=== PATIENT | female | born 1965 | race American Indian/Alaskan Native ===

== ENCOUNTER 2016-11-25 01:25 | Emergency (ER) | payer SELFPAY ==
[2016-11-25 03:34] LABS: Bacteria,Urine 1+ /HPF (Negative); Bilirubin,Urine NEG (Negative); Blood,Urine LG (Negative); Ketones,Urine NEG (Negative); Leukocyte Esterase,Urine NEG (Negative); Mucus,Urine 2+ /HPF; Nitrite,Urine NEG (Negative); Urobilinogen,Urine < 2.0 mg/dL (<2.0)
[2016-11-25 03:44] LABS: RBC,Urine > 182.0 /HPF (0.0-6.0)
--- NOTE | 2016-11-25 05:50 | Emergency Department Report ---
HPI - General Chief Complaint: Urogenital-Female Time Seen by Provider: 11/25/16 05:34 - HPI HPI: She is a 51-year-old female presents to the of urinary urgency for the past week. Patient states she started to take losm-xhj-garxgnp Azo O week ago started experiencing symptoms. Patient states symptoms are persistent and has no relief. She denies f/n/v She states she dysuria urgency but denies vaginal bleeding, vaginal discharge, dysuria or frequency ED Past Medical Hx - Past Medical History Hx Hypertension: Yes Additional medical history: Mobid Obesity - Surgical History Additional Surgical History: C-sections X 3 - Social History Smoking Status: Never Smoker Substance Use Type: None - Medications Home Medications: Home Medications Medication Instructions Recorded Confirmed Last Taken Type Clonidine 0.2 mg PO DAILY 11/25/16 11/25/16 Unknown History Lisinopril 20 mg PO DAILY 11/25/16 11/25/16 Unknown History Sulfamethoxazole/Trimethoprim 1 each PO BID #14 tablet 11/25/16 Unknown Rx [Bactrim DS TAB] metFORMIN 500 mg PO BID 11/25/16 11/25/16 Unknown History ED Review of Systems ROS: Stated complaint: UTI Other details as noted in HPI Constitutional: denies: chills, fever Eyes: denies: eye pain, eye discharge, vision change ENT: denies: ear pain, throat pain Respiratory: denies: cough, shortness of breath, wheezing Cardiovascular: denies: chest pain, palpitations Endocrine: no symptoms reported Gastrointestinal: denies: abdominal pain, nausea, diarrhea Genitourinary: denies: urgency, dysuria, discharge Musculoskeletal: denies: back pain, joint swelling, arthralgia Skin: denies: rash, lesions Neurological: denies: headache, weakness, paresthesias Psychiatric: denies: anxiety, depression Hematological/Lymphatic: denies: easy bleeding, easy bruising Physical Exam - Physical Exam Vital Signs: Vital Signs 11/25/16 02:18 Temperature 98.3 F Pulse Rate 87 Respiratory 16 Rate Blood Pressure 182/95 Blood Pressure 182/95 [Left] O2 Sat by Pulse 99 Oximetry Physical Exam: GENERAL: Alert and oriented x3, no apparent distress, Normal Gait, atraumatic. HEAD: Head is normocephalic and a-traumatic. EYES: Extra ocular muscles are intact. Pupils are equal, round, and reactive to light and accommodation. NECK: Supple. Non edematous, No carotid bruits. No lymphadenopathy or thyromegaly. No C-spine tenderness LUNGS: Symetrical with respiration, No wheezing, no rales or crackles, CTAB. HEART: S1, S2 present, regular rate and rhythm without murmur, no rubs, no gallops. Non tender to palpation ABDOMEN: No organomegaly was noted,Positive bowel sounds, soft, and non- distended. . Nontender to palpation on all Quadrants, NO CVA tenderness. BACK: Full range of motion, no spinal tenderness, nontender to palpation. SKIN: Warm and dry, No lesions, No ulceration or induration present. ED Course Vital Signs 11/25/16 02:18 Temperature 98.3 F Pulse Rate 87 Respiratory 16 Rate Blood Pressure 182/95 Blood Pressure 182/95 [Left] O2 Sat by Pulse 99 Oximetry ED Medical Decision Making - Medical Decision Making She is a 51-year-old female presents with urinary tract infection ED course: Urinalysis performed in ED, urinalysis positive for bacteria, positive for calc oxo First dose of antibiotics given in ED. Patient denies any pelvic or abdominal pain Discussed findings patient. Discussed patient to parts picker prescriptions take as prescribed. Vital signs are normal patient is in no acute distress Critical care attestation.: If time is entered above; I have spent that time in minutes in the direct care of this critically ill patient, excluding procedure time. ED Disposition Clinical Impression: UTI (urinary tract infection) Qualifiers: Urinary tract infection type: acute cystitis Hematuria presence: without hematuria Qualified Code(s): N30.00 - Acute cystitis without hematuria Disposition: TO HOME OR SELFCARE Is pt being admited?: No Does the pt Need Aspirin: No Condition: Stable Instructions: Urinary Tract Infection in Women (ED) Additional Instructions: Care medication as prescribed. Follow-up with primary care physician Prescriptions: Sulfamethoxazole/Trimethoprim [Bactrim DS TAB] 1 each PO BID #14 tablet Referrals: TIFFANIE MORLEY MD [Primary Care Provider] - 3-5 Days Forms: Accompanied Note, Work/School Release Form(ED) Time of Disposition: 05:47
[2016-11-25 05:51] VITALS: BP 166/93
[2016-11-25] MEDS ORDERED: BACTRIM DS PO ONE (05:51)
== END 2016-11-25 06:09 | disposition home or self-care (01) ==
LOC: ED 01:25
DX: N30.00 Acute cystitis without hematuria (principal); I10 Essential (primary) hypertension; E66.01 Morbid (severe) obesity due to excess calories
CPT/HCPCS: 81001

== ENCOUNTER 2018-10-03 04:29 | Emergency (ER) | payer SELFPAY ==
[2018-10-03 04:44] VITALS: BP 187/108
[2018-10-03 05:40] LABS: Bilirubin,Urine NEG (Negative); Blood,Urine LG (Negative); Color,Urine Colorless (Yellow); Protein,Urine <15 mg/dL mg/dL (Negative); Urobilinogen,Urine < 2.0 mg/dL (<2.0)
[2018-10-03 05:51] LABS: WBC,Urine < 1.0 /HPF (0.0-6.0)
--- NOTE | 2018-10-03 07:54 | Emergency Department Report ---
ED General Adult HPI - General Chief complaint: Back Pain/Injury Stated complaint: BACK PAIN/CONSTIPATION Time Seen by Provider: 10/03/18 07:46 Source: patient Mode of arrival: Ambulatory Limitations: No Limitations - History of Present Illness Initial comments: 53-year-old obese female comes in complaining of back pain and constipation. Patient put her last bowel movement was 12 noon yesterday. Patient also reports frequent urination and straining during a BM. Patient has no fever no chills no nausea no vomiting. Patient reports that her back pain has improved since being here. Patient reports she was able to evacuate a few balls of stool but not her normal evacuation. Patient admits that she drinks lots of copious coffee trying to lose weight. She reports that prior to coming in she drank plenty of water and now she is voiding plenty of urine. Onset/Timin -: hour(s) Location: back Radiation: non-radiation Severity scale (0 -10): 0 Quality: aching Consistency: intermittent - Related Data Home Medications Medication Instructions Recorded Confirmed Last Taken Clonidine 0.2 mg PO DAILY 11/25/16 11/25/16 Unknown Lisinopril 20 mg PO DAILY 11/25/16 11/25/16 Unknown metFORMIN 500 mg PO BID 11/25/16 11/25/16 Unknown Previous Rx's Medication Instructions Recorded Last Taken Type Sulfamethoxazole/Trimethoprim 1 each PO BID #14 tablet 11/25/16 Unknown Rx [Bactrim DS TAB] Docusate Sodium [Colace] 100 mg PO BID PRN #20 capsule 10/03/18 Unknown Rx Polyethylene Glycol 3350 [Miralax] 17 gm PO QDAY #238 powder 10/03/18 Unknown Rx Allergies Allergy/AdvReac Type Severity Reaction Status Date / Time No Known Allergies Allergy Unverified 06/07/14 09:22 ED Review of Systems ROS: Stated complaint: BACK PAIN/CONSTIPATION Other details as noted in HPI Comment: All other systems reviewed and negative Genitourinary: urgency Musculoskeletal: back pain ED Past Medical Hx - Past Medical History Previous Medical History?: Yes Hx Hypertension: Yes Additional medical history: Morbid Obesity - Surgical History Past Surgical History?: Yes Additional Surgical History: C-sections X 3 - Social History Smoking Status: Never Smoker Substance Use Type: None - Medications Home Medications: Home Medications Medication Instructions Recorded Confirmed Last Taken Type Clonidine 0.2 mg PO DAILY 11/25/16 11/25/16 Unknown History Lisinopril 20 mg PO DAILY 11/25/16 11/25/16 Unknown History Sulfamethoxazole/Trimethoprim 1 each PO BID #14 tablet 11/25/16 Unknown Rx [Bactrim DS TAB] metFORMIN 500 mg PO BID 11/25/16 11/25/16 Unknown History Docusate Sodium [Colace] 100 mg PO BID PRN #20 capsule 10/03/18 Unknown Rx Polyethylene Glycol 3350 [Miralax] 17 gm PO QDAY #238 powder 10/03/18 Unknown Rx ED Physical Exam - General Limitations: No Limitations General appearance: alert, in no apparent distress - Head Head exam: Present: atraumatic, normocephalic - Eye Eye exam: Present: normal appearance - ENT ENT exam: Present: mucous membranes moist - Neck Neck exam: Present: normal inspection - Respiratory Respiratory exam: Present: normal lung sounds bilaterally. Absent: respiratory distress - Cardiovascular Cardiovascular Exam: Present: regular rate, normal rhythm. Absent: systolic murmur, diastolic murmur, rubs, gallop - GI/Abdominal GI/Abdominal exam: Present: soft, normal bowel sounds - Extremities Exam Extremities exam: Present: normal inspection - Back Exam Back exam: Present: normal inspection - Neurological Exam Neurological exam: Present: alert, oriented X3 - Psychiatric Psychiatric exam: Present: normal affect, normal mood - Skin Skin exam: Present: warm, dry, intact, normal color. Absent: rash ED Course Vital Signs 10/03/18 04:42 Temperature 98.4 F Pulse Rate 90 Respiratory 18 Rate Blood Pressure 187/108 O2 Sat by Pulse 98 Oximetry ED Medical Decision Making - Medical Decision Making Patient has been evaluated by this provider at [facility]. She is a 53-year-old female that comes in for concerns of constipation back pain and urinary urgency. I discussed the patient that her urine looked fine she does have some Bear hematuria. Other than that patient has no white count nitrates protein RBCs or WBCs. Discussed the patient that she can try MiraLAX and Colace to help void. Discussed the patient is very important for her to follow back up with her primary care provider to have her microhematuria evaluated. Patient verbalized understanding. Critical care attestation.: If time is entered above; I have spent that time in minutes in the direct care of this critically ill patient, excluding procedure time. ED Disposition Clinical Impression: Constipation, Urinary urgency, Microhematuria Disposition: DC-01 TO HOME OR SELFCARE Is pt being admited?: No Does the pt Need Aspirin: No Condition: Stable Instructions: Constipation (ED), High Fiber Diet (ED), Acute Hematuria (ED) Additional Instructions: Take medications as prescribed. Follow-up to primary care provider if her symptoms persist or gets worse. I feel that she needs to follow up to primary care provider in regards to micro-hematuria/blood in urine. You may need further testing. Prescriptions: Docusate Sodium [Colace] 100 mg PO BID PRN #20 capsule PRN Reason: Constipation Polyethylene Glycol 3350 [Miralax] 17 gm PO QDAY #238 powder Referrals: [facility] SAUL SON MD [Primary Care Provider] - 3-5 Days
== END 2018-10-03 07:56 | disposition home or self-care (01) ==
LOC: ED 04:29
DX: K59.00 Constipation, unspecified (principal); R39.15 Urgency of urination; R31.29 Other microscopic hematuria; I10 Essential (primary) hypertension
CPT/HCPCS: 81001; 87086

== ENCOUNTER 2020-02-05 21:56 | Inpatient (IN) | payer OTHER ==
[2020-02-06] MEDS ORDERED: predniSONE 20 MG TAB PO ONE (00:39)
[2020-02-06] MEDS ORDERED: BENZONATATE 100 MG CAP PO ONE (00:39)
--- NOTE | 2020-02-06 00:48 | Emergency Department Report ---
- General Chief Complaint: Upper Respiratory Infection Stated Complaint: COUGH/BODY ACHES Source: patient Mode of arrival: Ambulatory Limitations: No Limitations - History of Present Illness Initial Comments: Patient is a 54-year-old -Vincent[place] female with a history of morbid obesity and zcv-ssulqwp-rsbquiizw diabetes who presents to the ED with complaint of acute onset persistent nasal and sinus congestion, frontal sinus pressure and headache, persistent dry cough for the last 1 week, worse in the last 2 days. Patient states that the cough is worse at night or when she lays down. Patient states that she has been taking ttxh-fmm-cknefgx decongestants and cough medications with no relief. Patient denies fever, chills, sore throat, chest pain, dizziness, shortness of breath, change in vision, syncope, palpitations, abdominal pain, wheezing or nausea, vomiting and diarrhea. MD Complaint: cough, rhinorrhea, nasal congestion, sinus pain -: Sudden, week(s) (1) Severity: severe Severity scale (0 -10): 7 Quality: dull Consistency: constant Improves With: nothing Worsens With: nothing Associated Symptoms: denies other symptoms, rhinorrhea, nasal congestion, cough. denies: fever, chills, myalgias, diaphoresis, headache, sore throat, stiff neck, chest pain, shortness of breath, abdominal pain, nausea, vomiting, diarrhea, dysuria, rash, confusion, right sweats, weight loss - Related Data Home Medications Medication Instructions Recorded Confirmed Last Taken Clonidine 0.2 mg PO DAILY 11/25/16 11/25/16 Unknown Lisinopril 20 mg PO DAILY 11/25/16 11/25/16 Unknown metFORMIN 500 mg PO BID 11/25/16 11/25/16 Unknown Previous Rx's Medication Instructions Recorded Last Taken Type Sulfamethoxazole/Trimethoprim 1 each PO BID #14 tablet 11/25/16 Unknown Rx [Bactrim DS TAB] Docusate Sodium [Colace] 100 mg PO BID PRN #20 capsule 10/03/18 Unknown Rx Polyethylene Glycol 3350 [Miralax] 17 gm PO QDAY #238 powder 10/03/18 Unknown Rx Allergies Allergy/AdvReac Type Severity Reaction Status Date / Time No Known Allergies Allergy Unverified 06/07/14 09:22 ED Review of Systems ROS: Stated complaint: COUGH/BODY ACHES Other details as noted in HPI Constitutional: denies: chills, fever Eyes: denies: eye pain, eye discharge, vision change ENT: congestion. denies: ear pain, throat pain Respiratory: cough. denies: shortness of breath, wheezing Cardiovascular: denies: chest pain, palpitations Endocrine: no symptoms reported Gastrointestinal: denies: abdominal pain, nausea, vomiting, diarrhea Genitourinary: denies: urgency, dysuria, discharge Musculoskeletal: denies: back pain, joint swelling, arthralgia Skin: denies: rash, lesions Neurological: headache. denies: weakness, paresthesias Psychiatric: denies: anxiety, depression Hematological/Lymphatic: denies: easy bleeding, easy bruising ED Past Medical Hx - Past Medical History Previous Medical History?: Yes Hx Hypertension: Yes Additional medical history: Morbid Obesity - Surgical History Past Surgical History?: Yes Additional Surgical History: C-sections X 3 - Social History Smoking Status: Never Smoker Substance Use Type: None - Medications Home Medications: Home Medications Medication Instructions Recorded Confirmed Last Taken Type Clonidine 0.2 mg PO DAILY 11/25/16 11/25/16 Unknown History Lisinopril 20 mg PO DAILY 11/25/16 11/25/16 Unknown History Sulfamethoxazole/Trimethoprim 1 each PO BID #14 tablet 11/25/16 Unknown Rx [Bactrim DS TAB] metFORMIN 500 mg PO BID 11/25/16 11/25/16 Unknown History Docusate Sodium [Colace] 100 mg PO BID PRN #20 capsule 10/03/18 Unknown Rx Polyethylene Glycol 3350 [Miralax] 17 gm PO QDAY #238 powder 10/03/18 Unknown Rx ED Physical Exam - General Limitations: No Limitations General appearance: alert, in no apparent distress, obese - Head Head exam: Present: atraumatic, normocephalic, normal inspection - Eye Eye exam: Present: normal appearance, PERRL, EOMI Pupils: Present: normal accommodation - ENT ENT exam: Present: normal orophraynx, mucous membranes moist, TM's normal bilaterally, normal external ear exam, other (Grossly congested nasal passages; palpable frontal and maxillary sinus tenderness) - Neck Neck exam: Present: normal inspection, full ROM - Respiratory Respiratory exam: Present: normal lung sounds bilaterally. Absent: respiratory distress, wheezes, rales, rhonchi, chest wall tenderness, accessory muscle use, decreased breath sounds, prolonged expiratory - Cardiovascular Cardiovascular Exam: Present: regular rate, normal rhythm, normal heart sounds. Absent: systolic murmur, diastolic murmur, rubs, gallop - GI/Abdominal GI/Abdominal exam: Present: soft, normal bowel sounds. Absent: tenderness, guarding, rebound, hyperactive bowel sounds, hypoactive bowel sounds, organomegaly - Extremities Exam Extremities exam: Present: normal inspection, full ROM, normal capillary refill - Back Exam Back exam: Present: normal inspection, full ROM. Absent: CVA tenderness (L), muscle spasm, paraspinal tenderness, vertebral tenderness - Neurological Exam Neurological exam: Present: alert, oriented X3, CN II-XII intact, normal gait, reflexes normal - Psychiatric Psychiatric exam: Present: normal affect, normal mood - Skin Skin exam: Present: warm, dry, intact, normal color. Absent: rash ED Course Vital Signs 02/06/20 00:17 Temperature 98.7 F Pulse Rate 96 H Respiratory 18 Rate Blood Pressure 180/78 O2 Sat by Pulse 100 Oximetry ED Medical Decision Making - Radiology Data Radiology results: report reviewed, image reviewed Findings [address] [address] XRay Report Signed Patient: NAYAN BARRON MR#: [id number] : 1965 Acct:[id number] Age/Sex: 54 / F ADM Date: 02/05/20 Loc: ED Attending Dr: Ordering Physician: ROGERS IZAGUIRRE MD Date of Service: 02/06/20 Procedure(s): XR chest routine 2V Accession Number(s): [id number] cc: ROGERS IZAGUIRRE MD Fluoro Time In Minutes: CHEST 2 VIEWS INDICATION / CLINICAL INFORMATION: cough. COMPARISON: None available. FINDINGS: SUPPORT DEVICES: None. HEART / MEDIASTINUM: No significant abnormality. LUNGS / PLEURA: There are patchy bilateral peripheral opacities. No pneumothorax. ADDITIONAL FINDINGS: No significant additional findings. IMPRESSION: 1. Patchy bilateral peripheral pulmonary opacities that may reflect developing infectious process. Viral pneumonia would be a possibility. Signer Name: Dontae Rodriguez MD Signed: 02/06/2020 12:51 AM Workstation Name: [id number] Transcribed By: VIRGEN Dictated By: Dontae Rodriguez MD Electronically Authenticated By: Dontae Rodriguez MD Signed Date/Time: 02/06/2050 DD/ TD/TT: - Medical Decision Making This is a 54-year-old -Vincentian female with a history of morbid obesity and ztw-xaepsyu-fnlgyxjre diabetes who presents to the ED with complaint of acute onset persistent nasal and sinus congestion, frontal sinus pressure and headache, persistent dry cough for the last 1 week, worse in the last 2 days. Patient states that the cough is worse at night or when she lays down. Patient states that she has been taking hxie-nex-jwbropz decongestants and cough medications with no relief. In the ED, patient is alert and oriented x3 and is not in distress with normal vital signs. Patient was treated with steroids and Duoneb in the ED and chest x-ray patchy bilateral peripheral pulmonary opacities that may reflect developing infectious process. Viral pneumonia would be a possibility. The initial vital signs on arrival in the ED during triage showed oxygen saturation of 100% in room air. However when patient was walked around the ED the oxygen saturation dropped to 89% and stayed in the range of 89% to 91% with exertion. More lab tests were ordered and the patient case was discussed with the ED attending physician Dr. Rogers Izaguirre who advised the patient be admitted to the hospital for hypoxia and suspected Covid 19 viral infection and community-acquired pneumonia. Patient was therefore started on azithromycin 500 mg IV x1, also Rocephin 1 g IV x1 and patient was placed on nasal cannula oxygen at 2 L/min, and COVID-19 order set was initiated. The patient case was also discussed with the hospitalist physician on-call Dr. Teran who admitted the patient to the hospital for further evaluation. - Differential Diagnosis Pneumonia; Covid-19; Sinusitis; URI; Bronchitis Critical care attestation.: If time is entered above; I have spent that time in minutes in the direct care of this critically ill patient, excluding procedure time. ED Disposition Clinical Impression: Acute upper respiratory infection, Suspected COVID-19 virus infection, Hypoxia Acute bronchitis Qualifiers: Bronchitis organism: other organism Qualified Code(s): J20.8 - Acute bronchitis due to other specified organisms Community acquired pneumonia Qualifiers: Laterality: unspecified laterality Qualified Code(s): J18.9 - Pneumonia, unspecified organism Disposition: OP ADMIT IP TO THIS HOSP Is pt being admited?: Yes Does the pt Need Aspirin: Yes Condition: Stable Instructions: Acute Bronchitis, Adult, Rpvt-ae-Furk, Upper Respiratory Infection, Adult, [id number], Acute Bronchitis (ED), Bacterial Pneumonia (ED) Referrals: [facility] [Provider Group] - 7-10 days Time of Disposition: 00:49 Print Language: YAKUT
--- NOTE | 2020-02-06 00:56 | XRay Report ---
CHEST 2 VIEWS INDICATION / CLINICAL INFORMATION: cough. COMPARISON: None available. FINDINGS: SUPPORT DEVICES: None. HEART / MEDIASTINUM: No significant abnormality. LUNGS / PLEURA: There are patchy bilateral peripheral opacities. No pneumothorax. ADDITIONAL FINDINGS: No significant additional findings. IMPRESSION: 1. Patchy bilateral peripheral pulmonary opacities that may reflect developing infectious process. Vi ral pneumonia would be a possibility. Signer Name: Dontae Rodriguez MD Signed: 02/06/2020 12:51 AM Workstation Name: [id number]
[2020-02-06] MEDS ORDERED: IPRATROPIUM/ALBUTEROL SULFATE 3 ML AMPUL.NEB IH ONE (01:18)
[2020-02-06] MEDS ORDERED: dexAMETHasone 20 MG/5 ML VIAL IV ONE (01:25)
[2020-02-06] MEDS ORDERED: cefTRIAXone/NS 1 GM/50 ML 1 GM/50 ML BAG IV ONE (01:26)
[2020-02-06] MEDS ORDERED: ASPIRIN 81 MG TAB CHEW PO ONE (01:36)
[2020-02-06] MEDS ORDERED: AZITHROMYCIN 500 MG in SODIUM CHLORIDE 0.9% 250ML 250 ML IV ONE (01:46)
[2020-02-06 01:59] LABS: Basophils % (Auto) 0.3 % (0.0-1.8); Eosinophils % (Auto) 0.1 % (0.0-4.3); Hematocrit 40.4 % (30.3-42.9); Hemoglobin 13.5 gm/dl (10.1-14.3); Lymphocytes # (Auto) 1.7 K/mm3 (1.2-5.4); Lymphocytes % (Auto) 28.4 % (13.4-35.0); Mean Corpuscular HGB Conc 33 % (30-34); Mean Corpuscular Volume 80 fl (79-97); Monocytes # (Auto) 0.6 K/mm3 (0.0-0.8); Monocytes % (Auto) 9.4 % (0.0-7.3); Platelet Count 239 K/mm3 (140-440); Red Blood Count 5.07 M/mm3 (3.65-5.03); Red Cell Distribution Width 13.9 % (13.2-15.2)
[2020-02-06 02:15] LABS: Alanine Aminotransferase 90 units/L (7-56); Albumin 3.9 g/dL (3.9-5); BUN/Creatinine Ratio 13; Blood Urea Nitrogen 12 mg/dL (7-17); Hemolysis Index 3
[2020-02-06] MEDS ORDERED: ONDANSETRON 4 MG/2 ML INJ IV PRN ×2 (02:17→02:19)
[2020-02-06] MEDS ORDERED: ACETAMINOPHEN 325 MG TAB PO PRN (02:17)
[2020-02-06] MEDS ORDERED: MORPHINE 2 MG/1 ML INJ IV PRN (02:19)
[2020-02-06] MEDS ORDERED: MAGNESIUM HYDROXIDE (MOM) ORAL LIQD UDC PO PRN (02:19)
[2020-02-06] MEDS ORDERED: DEXTROSE 50% IN WATER (25GM) 50 ML SYRINGE IV PRN (02:25)
[2020-02-06] MEDS ORDERED: SODIUM CHLORIDE 0.9% 1000 ML 1,000 ML IV SCH (02:30)
--- NOTE | 2020-02-06 02:34 | History and Physical Report ---
History of Present Illness Date of examination: 02/06/20 Date of admission: 02/06/2020 Chief complaint: Nasal Congestion History of present illness: 54-year-old -[place] female with known history of morbid obesity and diabetes mellitus presenting to the emergency room today complaining of new onset nasal and sinus congestion, cough and some headache over the past 1 week. Symptoms are said to have gotten worse over the past 2 days. Cough has been nonproductive or gets worse when she lies down. Patient denies any chest pain, no fever or chills, no sore throat, no nausea or vomiting and no diarrhea. Patient denies any recent travel no sick contacts. She also denies contact with anyone with COVID-19. Upon arrival in the emergency room patient was mildly hypoxic on minimal exertion. Work-up in the emergency room today reveals bilateral pneumonia. She has been started on empiric IV antibiotics for pneumonia and she will also be ruled out for COVID-19. Past History Past Medical History: diabetes, hypertension, other (Morbid obesity) Past Surgical History: Social history: no significant social history Family history: no significant family history Medications and Allergies Allergies Allergy/AdvReac Type Severity Reaction Status Date / Time No Known Allergies Allergy Unverified 06/07/14 09:22 Home Medications Medication Instructions Recorded Confirmed Last Taken Type Lisinopril 20 mg PO DAILY 11/25/16 02/06/20 Unknown History metFORMIN 500 mg PO BID 11/25/16 02/06/20 Unknown History Active Meds: Active Medications Acetaminophen (Tylenol) 650 mg PO Q4H PRN PRN Reason: Pain MILD(1-3)/Fever >100.5/GR Dexamethasone (Decadron) 6 mg IV Q24HR NELLIE Dextrose (D50w (25gm) Syringe) 50 ml IV Q30MIN PRN; Protocol PRN Reason: Hypoglycemia Enoxaparin Sodium (Enoxaparin) 40 mg SUB-Q QDAY@2200 NELLIE; Protocol Azithromycin 500 mg/ Sodium (Chloride) 250 mls @ 250 mls/hr IV ONCE ONE; Protocol Stop: 02/06/20 02:45 Ceftriaxone Sodium (Rocephin/Ns 2 Gm/100 Ml) 2 gm in 100 mls @ 200 mls/hr IV Q24HR NELLIE; Protocol Azithromycin 500 mg/ Sodium (Chloride) 250 mls @ 250 mls/hr IV Q24HR NELLIE; Protocol Sodium Chloride (Nacl 0.9% 1000 Ml) 1,000 mls @ 75 mls/hr IV DIRECT NELLIE Insulin Human Lispro (Humalog) 0 unit SUB-Q ACHS NELLIE; Protocol Magnesium Hydroxide (Milk Of Magnesia) 30 ml PO Q4H PRN PRN Reason: Constipation Morphine Sulfate (Morphine) 2 mg IV Q4H PRN PRN Reason: Pain, Moderate (4-6) Ondansetron HCl (Zofran) 4 mg IV Q8H PRN PRN Reason: Nausea And Vomiting Sodium Chloride (Sodium Chloride Flush Syringe 10 Ml) 10 ml IV BID NELLIE Sodium Chloride (Sodium Chloride Flush Syringe 10 Ml) 10 ml IV PRN PRN PRN Reason: LINE FLUSH Review of Systems Constitutional: no fever, no chills Ears, nose, mouth and throat: nasal congestion, no sore throat Cardiovascular: no chest pain, no palpitations Respiratory: cough, no shortness of breath Gastrointestinal: no abdominal pain, no nausea, no vomiting, no diarrhea Genitourinary Female: no flank pain, no dysuria, no hematuria Musculoskeletal: no neck pain, no low back pain Integumentary: no rash, no pruritis Neurological: no headaches, no confusion Psychiatric: no anxiety, no depression Exam - Constitutional Vitals: Temp Pulse Resp BP Pulse Ox 98.7 F 98 H 18 180/78 100 02/06/20 00:17 02/06/20 01:57 02/06/20 01:57 02/06/20 00:17 02/06/20 00:17 General appearance: Present: no acute distress, well-nourished - EENT Eyes: Present: PERRL, EOM intact. Absent: scleral icterus ENT: hearing intact, clear oral mucosa, dentition normal - Neck Neck: Present: supple, normal ROM - Respiratory Respiratory effort: normal Respiratory: bilateral: diminished - Cardiovascular Rhythm: regular Heart Sounds: Present: S1 & S2. Absent: gallop, systolic murmur, diastolic murmur, rub - Extremities Extremities: no ischemia, pulses intact, pulses symmetrical, No edema, Full ROM Peripheral Pulses: within normal limits - Abdominal General gastrointestinal: Present: soft, non-tender, non-distended, normal bowel sounds. Absent: mass - Integumentary Integumentary: Present: clear, warm, dry - Musculoskeletal Musculoskeletal: strength equal bilaterally - Psychiatric Psychiatric: appropriate mood/affect, intact judgment & insight, memory intact, cooperative - Neurologic Neurologic: CNII-XII intact, no focal deficits, moves all extremities Results - Labs CBC & Chem 7: 02/06/20 01:34 02/06/20 01:34 Labs: Abnormal lab results 02/06/20 02/06/20 02/06/20 Range/Units 01:34 01:34 01:34 RBC 5.07 H (3.65-5.03) M/mm3 MCH 27 L (28-32) pg [place] % (Auto) 9.4 H (0.0-7.3) % D-Dimer 537.10 H (0-234) ng/mlDDU Potassium 2.9 L* (3.6-5.0) mmol/L Chloride 97.2 L (98-107) mmol/L Glucose 135 H (65-100) mg/dL AST 67 H (5-40) units/L ALT 90 H (7-56) units/L 02/06/20 Range/Units 01:34 RBC (3.65-5.03) M/mm3 MCH (28-32) pg [place] % (Auto) (0.0-7.3) % D-Dimer (0-234) ng/mlDDU Potassium (3.6-5.0) mmol/L Chloride (98-107) mmol/L Glucose 134 H (65-100) mg/dL AST (5-40) units/L ALT (7-56) units/L Assessment and Plan - Patient Problems (1) Community acquired pneumonia Current Visit: Yes Status: Acute Qualifiers: Laterality: unspecified laterality Qualified Code(s): J18.9 - Pneumonia, unspecified organism Plan to address problem: Patient started on empiric IV antibiotics. We await blood culture results. (2) Suspected COVID-19 virus infection Current Visit: Yes Status: Acute Plan to address problem: Patient placed on isolation precautions. We await COVID-19 testing We will also await evaluation by infectious disease. Meanwhile patient placed on IV steroid (3) Hypoxia Current Visit: Yes Status: Acute Plan to address problem: Possibly secondary to the Covid pneumonia. Patient placed on oxygen and will keep O2 saturation greater or equal to 94%. (4) DVT prophylaxis Current Visit: Yes Status: Acute Plan to address problem: Patient placed on subcutaneous Lovenox. (5) Full code status Current Visit: Yes Status: Acute
[2020-02-06 03:07] LABS: C-Reactive Protein 3.2 mg/dL (0.00-1.30)
[2020-02-06] MEDS: INSULIN LISPRO 100 UNIT/ML VIAL 3 mL SUB-Q SCH ×4 (08:08→22:47)
[2020-02-06] MEDS ORDERED: POTASSIUM CHLORIDE ER 20 MEQ TAB PO NR (09:08)
[2020-02-06] MEDS ORDERED: AZITHROMYCIN 500 MG in SODIUM CHLORIDE 0.9% 250ML 250 ML IV SCH (10:00)
[2020-02-06] MEDS ORDERED: dexAMETHasone 4 MG/ML VIAL IV SCH (10:00)
[2020-02-06] MEDS ORDERED: cefTRIAXone/NS 2 GM/100 ML 2 GM/100 ML BAG IV SCH (10:00)
[2020-02-06] MEDS: LISINOPRIL 20 MG TAB PO SCH (10:15)
[2020-02-06] MEDS ORDERED: hydrALAZINE 20 MG/1 ML INJ IV PRN (13:37)
--- NOTE | 2020-02-06 13:39 | Event Note ---
Date: 02/06/20 patient seen and examined follow COVID test magnusy, adjust BP meds replete K, follow BMP
[2020-02-06] MEDS: carvediloL 6.25 MG TAB PO SCH ×2 (14:20→22:46)
[2020-02-06] MEDS: amLODIPine 10 MG TAB PO SCH (14:20)
[2020-02-06] MEDS: POTASSIUM CHLORIDE 10 MEQ 10 MEQ/100 ML BAG IV SCH ×4 (14:21→22:46)
[2020-02-06] MEDS: IPRATROPIUM/ALBUTEROL SULFATE 3 ML AMPUL.NEB IH SCH ×2 (14:31→21:25)
--- NOTE | 2020-02-06 14:36 | Consultation ---
History of Present Illness - Reason for Consult Consult date: 02/06/20 Rule out Covid Requesting physician: ANDRAE HESTER - History of Present Illness 54 years old female with history of morbid obesity, diabetes mellitus, admitted on 02/06/2020 due to a week history of nasal congestion, sinus congestion, cough, headaches. Cough is dry. Patient denies any fever, chills, nausea, vomiting or diarrhea. On arrival, temperature 98.7, HR 96, O2 sat 98%, RR 18, BP 180/78. During ambulation O2 sat dropped to 89%. Initial WBC 5.8. CRP 0.9. AST 67. ALT 90. Ferritin 674. Procalcitonin negative. D-dimer 537. Chest x-ray shows bilateral interstitial infiltrates. Review of Systems: reviewed ED and H&P notes. Limited due to PPE conservation st rategy Past History Past Medical History: diabetes, hypertension, other (Morbid obesity) Past Surgical History: Social history: no significant social history Family history: no significant family history Medications and Allergies Allergies Allergy/AdvReac Type Severity Reaction Status Date / Time No Known Allergies Allergy Unverified 06/07/14 09:22 Home Medications Medication Instructions Recorded Confirmed Last Taken Type Lisinopril 20 mg PO DAILY 11/25/16 02/06/20 Unknown History metFORMIN 500 mg PO BID 11/25/16 02/06/20 Unknown History Lisinopril/Hydrochlorothiazide 1 each PO DAILY 02/06/20 02/06/20 Unknown History [Zestoretic 10-12.5 mg Tablet] amLODIPine 5 mg PO DAILY 02/06/20 02/06/20 Unknown History cloNIDine [Catapres] 0.2 mg PO BID 02/06/20 02/06/20 Unknown History Active Meds: Active Medications Acetaminophen (Tylenol) 650 mg PO Q4H PRN PRN Reason: Pain MILD(1-3)/Fever >100.5/GR Albuterol/Ipratropium (Duoneb *Not For Prn Use*) 1 ampul IH Q6HRT [facility] Last Admin: 02/06/20 14:31 Dose: 1 ampul Documented by: Amlodipine Besylate (Amlodipine) 10 mg PO QDAY [facility] Last Admin: 02/06/20 14:20 Dose: 10 mg Documented by: Carvedilol (Coreg) 6.25 mg PO BID [facility] Last Admin: 02/06/20 14:20 Dose: 6.25 mg Documented by: Dexamethasone (Decadron) 6 mg PO Q24HR NELLIE Dextrose (D50w (25gm) Syringe) 0 ml IV Q30MIN PRN; Protocol PRN Reason: Hypoglycemia Enoxaparin Sodium (Enoxaparin) 40 mg SUB-Q QDAY@2200 NELLIE; Protocol Hydralazine HCl (Apresoline) 10 mg IV Q30MIN PRN PRN Reason: Hypertension Ceftriaxone Sodium (Rocephin/Ns 2 Gm/100 Ml) 2 gm in 100 mls @ 200 mls/hr IV Q24HR NELLIE; Protocol Last Admin: 02/06/20 10:10 Dose: 200 mls/hr Documented by: Azithromycin 500 mg/ Sodium (Chloride) 250 mls @ 250 mls/hr IV Q24HR NELLIE; Protocol Last Admin: 02/06/20 11:39 Dose: 250 mls/hr Documented by: Sodium Chloride (Nacl 0.9% 1000 Ml) 1,000 mls @ 75 mls/hr IV DIRECT NELLIE Last Admin: 02/06/20 06:19 Dose: 75 mls/hr Documented by: Potassium Chloride (Kcl 10meq/100ml) 10 meq in 100 mls @ 100 mls/hr IV Q1H NELLIE Stop: 02/06/20 17:59 Last Admin: 02/06/20 14:21 Dose: 100 mls/hr Documented by: Insulin Human Lispro (Humalog) 0 unit SUB-Q ACHS NELLIE; Protocol Last Admin: 02/06/20 11:40 Dose: 3 unit Documented by: Lisinopril (Zestril) 20 mg PO DAILY [facility] Last Admin: 02/06/20 10:15 Dose: 20 mg Documented by: Magnesium Hydroxide (Milk Of Magnesia) 30 ml PO Q4H PRN PRN Reason: Constipation Morphine Sulfate (Morphine) 2 mg IV Q4H PRN PRN Reason: Pain, Moderate (4-6) Ondansetron HCl (Zofran) 4 mg IV Q8H PRN PRN Reason: Nausea And Vomiting Potassium Chloride (K-Dur) 40 meq PO ONCE ONE Stop: 02/06/20 15:01 Last Admin: 02/06/20 14:19 Dose: 40 meq Documented by: Sodium Chloride (Sodium Chloride Flush Syringe 10 Ml) 10 ml IV BID NELLIE Last Admin: 02/06/20 10:10 Dose: 10 ml Documented by: Sodium Chloride (Sodium Chloride Flush Syringe 10 Ml) 10 ml IV PRN PRN PRN Reason: LINE FLUSH Physical Examination - Physical Exam Narrative exam: Physical Exam: reviewed ED and hospitalist notes, limited due to conservation of PPE and decrease risk of transmission. General appearance: limited due to conservation of PPE Eyes: limited due to conservation of PPE HENT: Atraumatic; limited due to conservation of PPE Lungs: limited due to conservation of PPE CV: limited due to conservation of PPE Abdomen: limited due to conservation of PPE Extremities: limited due to conservation of PPE Skin: limited due to conservation of PPE Psych: limited due to conservation of PPE Neuro: limited due to conservation of PPE - Constitutional Vitals: Vital Signs Temp Pulse Resp BP Pulse Ox 98.7 F 84 17 172/77 88 02/06/20 11:35 02/06/20 14:20 02/06/20 11:35 02/06/20 14:20 02/06/20 11:35 Temperature -Last 24 Hours Temperature 98.7 F Temperature 98.7 F Temperature 98.8 F Temperature 98.7 F Results - Labs CBC & Chem 7: 02/06/20 01:34 02/06/20 01:34 Labs: Abnormal lab results 02/06/20 02/06/20 02/06/20 Range/Units 01:34 01:34 01:34 RBC 5.07 H (3.65-5.03) M/mm3 MCH 27 L (28-32) pg [place] % (Auto) 9.4 H (0.0-7.3) % D-Dimer 537.10 H (0-234) ng/mlDDU Potassium 2.9 L* (3.6-5.0) mmol/L Chloride 97.2 L (98-107) mmol/L Glucose 135 H (65-100) mg/dL POC Glucose (70-105) mg/dL Ferritin (10.0-200.0) ng/mL AST 67 H (5-40) units/L ALT 90 H (7-56) units/L Lactate Dehydrogenase (91-180) units/L C-Reactive Protein (0.00-1.30) mg/dL 1102/06/20 02/06/20 Range/Units 01:34 01:34 08:03 RBC (3.65-5.03) M/mm3 MCH (28-32) pg [place] % (Auto) (0.0-7.3) % D-Dimer (0-234) ng/mlDDU Potassium (3.6-5.0) mmol/L Chloride (98-107) mmol/L Glucose 134 H (65-100) mg/dL POC Glucose 173 H (70-105) mg/dL Ferritin 674.4 H (10.0-200.0) ng/mL AST (5-40) units/L ALT (7-56) units/L Lactate Dehydrogenase 336 H (91-180) units/L C-Reactive Protein 3.20 H (0.00-1.30) mg/dL 02/06/20 Range/Units 11:49 RBC (3.65-5.03) M/mm3 MCH (28-32) pg [place] % (Auto) (0.0-7.3) % D-Dimer (0-234) ng/mlDDU Potassium (3.6-5.0) mmol/L Chloride (98-107) mmol/L Glucose (65-100) mg/dL POC Glucose 200 H (70-105) mg/dL Ferritin (10.0-200.0) ng/mL AST (5-40) units/L ALT (7-56) units/L Lactate Dehydrogenase (91-180) units/L C-Reactive Protein (0.00-1.30) mg/dL Assessment and Plan Cultures: None Assessment: 54 years old female with history of morbid obesity, diabetes mellitus, admitted on 02/06/2020 due to a week history of nasal congestion, si nus congestion, cough, headaches: #Bilateral pneumonia: Suspicion for COVID-19 pneumonia. Markers elevated ferritin 674, D-dimer 537. Procalcitonin is normal, doubt bacterial pneumonia. #Acute hypoxemic respiratory failure: O2 sat dropped to 88%, patient on room air. #Elevated LFTs: Likely from COVID #Morbid obesity: BMI 58, associated with poor outcomes Recommendations: -Start Dexamethasone 6 mg IV/PO qday for 10 days -If SARS-CoV-2 PCR is positive start Remdesivir 200 mg IV q day x 1 day followed by 100 mg IV q day x 4 days (CrCl>30. Order placed) -Monitor inflammatory markers - ferritin, Ddimer, CRP, LDH -Stop ceftriaxone and azithromycin, procalcitonin <0.25 ng/mL -Monitor liver function test on Remdesivir -Continue anticoagulation per System Protocol -Prone positioning as possible -Obtain SARS CoV-2 IgG to determine if patient is a candidate for COVID convalescent plasma All laboratory, cultures and imaging were reviewed. Will follow Aracely Cotton MD Infectious Diseases [employer] [facility] ([facility] M [phone] O [phone]
[2020-02-06] MEDS ORDERED: POTASSIUM CHLORIDE ER 20 MEQ TAB PO ONE (15:00)
[2020-02-06] MEDS: ENOXAPARIN 40 MG/0.4 ML INJ SUB-Q SCH (22:46)
[2020-02-07] MEDS: guaiFENesin 200 MG TAB PO PRN ×2 (01:40→21:37)
[2020-02-07] MEDS: IPRATROPIUM/ALBUTEROL SULFATE 3 ML AMPUL.NEB IH SCH ×4 (01:40→20:52)
[2020-02-07] MEDS: POTASSIUM CHLORIDE 10 MEQ 10 MEQ/100 ML BAG IV SCH ×2 (06:31→09:58)
[2020-02-07 08:20] LABS: Blood Urea Nitrogen 11 mg/dL (7-17); Calcium 8.8 mg/dL (8.4-10.2); Hemolysis Index 92
[2020-02-07 08:21] LABS: BUN/Creatinine Ratio 18
[2020-02-07] MEDS: carvediloL 6.25 MG TAB PO SCH ×2 (09:58→21:25)
[2020-02-07] MEDS: DEXAMETHASONE 2 MG TAB PO SCH (09:58)
[2020-02-07] MEDS: LISINOPRIL 20 MG TAB PO SCH (09:59)
[2020-02-07] MEDS: amLODIPine 10 MG TAB PO SCH (09:59)
[2020-02-07] MEDS: INSULIN LISPRO 100 UNIT/ML VIAL 3 mL SUB-Q SCH ×4 (10:32→23:07)
[2020-02-07] MEDS ORDERED: REMDESIVIR 200 MG in SODIUM CHLORIDE 0.9% 250ML 250 ML IV ONE (11:00)
[2020-02-07] MEDS ORDERED: REMDESIVIR 100 MG VIAL IV ONE (11:00)
[2020-02-07] MEDS ORDERED: SODIUM CHLORIDE 0.9% 50 ML IVPB IV NR (11:00)
--- NOTE | 2020-02-07 17:48 | Progress Note ---
Assessment and Plan --Bilateral COVID 19 pneumonia: Markers elevated ferritin 674, D-dimer 537. Patient also hypoxic Started on dexamethasone 6 mg p.o. for total 10 days Start on remdesivir IV total 5 days Prone positioning as possible Obtain SARS CoV-2 IgG to determine if patient is a candidate for COVID convalescent plasma CXR: Patchy bilateral peripheral pulmonary infiltrates --Acute hypoxemic respiratory failure: O2 sat dropped to 88% on admission Continue supplemental O2 to keep O2 sat greater than 94% Scheduled breathing treatment and continue dexamethasone p.o. --Elevated LFTs: Likely from COVID, continue to monitor --Morbid obesity: BMI 58, dietary counseling for weight reduction when clinically stable --DVT prophylaxis, Lovenox Brief History; 54 years old female with history of morbid obesity, diabetes mellitus, admitted on 02/06/2020 due to a week history of nasal congestion, sinus congestion, dry cough, headaches. On arrival, temperature 98.7, HR 96, O2 sat 98%, RR 18, BP 180/78. During ambulation O2 sat dropped to 89%. Ferritin 674. Procalcitonin negative. D-dimer 537. Chest x-ray shows bilateral interstitial infiltrates. she is tested positive for COVID, ID consulted. 02/06: Patient is positive for COVID-19, continue dexamethasone, start on remdesivir as patient presented with high inflammatory markers hypoxia and morbid obesity. Continue to follow inflammatory markers. Subjective Date of service: 02/07/20 Interval history: Patient seen and examined. Medical records and medication list reviewed. No acute event overnight noted by the RN. Patient denies any chest pain , difficulty breathing on exertion only. Patient is tolerating diet. Discussed plan of care at bedside with patient. Objective - Exam Narrative Exam: GENERAL: well-developed morbidly obese -English female lying on bed appeared to be in no discomfort. HEENT: Normocephalic. Atraumatic. No conjunctival congestion or icterus. Patient has moist mucous membranes. NECK: Supple. Trachea midline. CHEST/LUNGS: breathing nonlabored. Positive bilateral rhonchi. HEART/CARDIOVASCULAR: Regular in rate and rhythm. S1 and S2 positive. ABDOMEN: Abdomen is soft, nontender. Patient has normal bowel sounds. SKIN: There is no rash. Warm and dry. NEURO: No focal motor deficit. Follows command. MUSCULOSKELETAL: No joint effusion or tenderness. EXTRIMITY: No edema, no cyanosis or clubbing. PSYCH: Cooperative. - Constitutional Vitals: Vital Signs - 12hr 02/07/20 02/07/20 02/07/20 08:29 09:58 09:59 Temperature Pulse Rate Pulse Rate [ 104 H Bilateral Throughout] Respiratory Rate Respiratory 19 Rate [Bilateral Throughout] Blood Pressure 150/83 150/83 Blood Pressure [Left] O2 Sat by Pulse Oximetry 02/07/20 02/07/20 11:45 14:55 Temperature 98.9 F Pulse Rate 89 Pulse Rate [ 93 H Bilateral Throughout] Respiratory 20 Rate Respiratory 17 Rate [Bilateral Throughout] Blood Pressure Blood Pressure 154/87 [Left] O2 Sat by Pulse 93 Oximetry - Labs CBC & Chem 7: 02/06/20 01:34 02/08/20 08:02 Labs: Abnormal lab results 02/06/20 02/07/20 02/07/20 Range/Units 22:18 07:39 17:23 Glucose 150 H (65-100) mg/dL POC Glucose 140 H 180 H (70-105) mg/dL
[2020-02-07] MEDS: ENOXAPARIN 40 MG/0.4 ML INJ SUB-Q SCH (21:25)
[2020-02-08] MEDS: IPRATROPIUM/ALBUTEROL SULFATE 3 ML AMPUL.NEB IH SCH ×4 (03:02→21:30)
[2020-02-08] MEDS: hydrALAZINE 20 MG/1 ML INJ IV PRN ×2 (06:09→15:47)
[2020-02-08] MEDS: guaiFENesin 200 MG TAB PO PRN (06:12)
[2020-02-08] MEDS: INSULIN LISPRO 100 UNIT/ML VIAL 3 mL SUB-Q SCH ×4 (07:30→21:59)
[2020-02-08 08:46] LABS: Blood Urea Nitrogen 11 mg/dL (7-17); Calcium 8.8 mg/dL (8.4-10.2); Hemolysis Index 4
[2020-02-08 08:56] LABS: BUN/Creatinine Ratio 16
[2020-02-08] MEDS: amLODIPine 10 MG TAB PO SCH (10:33)
[2020-02-08] MEDS: DEXAMETHASONE 2 MG TAB PO SCH (10:33)
[2020-02-08] MEDS: carvediloL 6.25 MG TAB PO SCH (10:33)
[2020-02-08] MEDS: LISINOPRIL 20 MG TAB PO SCH (10:34)
[2020-02-08] MEDS ORDERED: POTASSIUM CHLORIDE ER 20 MEQ TAB PO NR (11:00)
[2020-02-08] MEDS ORDERED: carvediloL 6.25 MG TAB PO SCH (11:01)
--- NOTE | 2020-02-08 14:41 | Progress Note ---
Assessment and Plan Cultures: SARS-CoV-2 PCR: Positive; IgG: Positive Assessment: 54 years old female with history of morbid obesity, diabetes mellitus, admitted on 02/06/2020 due to a week history of nasal congestion, sinus congestion, cough, headaches: #Bilateral pneumonia: Secondary to COVID-19 #Acute hypoxemic respiratory failure: On supplemental oxygen #Elevated LFTs: Likely from COVID #Morbid obesity: BMI 58, associated with poor outcomes Recommendations: -Continue dexamethasone 6 mg IV/PO qday for 10 days -Continue remdesivir for total 5 days -Monitor inflammatory markers - ferritin, Ddimer, CRP, LDH -Monitor liver function test on Remdesivir -Continue anticoagulation per System Protocol Gelacio Deng MD, FACP [facility], [place], [facility] O: [phone] F: [phone] Subjective Date of service: 02/08/20 Interval history: Patient afebrile. On oxygen by nasal cannula at 2 L/min. Objective - Exam Narrative Exam: Physical Exam (reviewed in chart due to PPE conservation and minimize risk of transmission) Constitutional: limited due to PPE conservation strategy Head, Ears, Nose: limited due to PPE conservation strategy Eyes: limited due to PPE conservation strategy Neck: limited due to PPE conservation strategy Oral: limited due to PPE conservation strategy Cardiovascular: limited due to PPE conservation strategy Respiratory: limited due to PPE conservation strategy GI: limited due to PPE conservation strategy Musculoskeletal: limited due to PPE conservation strategy Skin: limited due to PPE conservation strategy Hem/Lymphatic: limited due to PPE conservation strategy Psych: limited due to PPE conservation strategy Neurological: limited due to PPE conservation strategy - Constitutional Vitals: Vital Signs Temp Pulse Resp BP Pulse Ox 98.6 F 86 18 174/87 95 02/08/20 05:46 02/08/20 13:20 02/08/20 13:20 02/08/20 05:46 02/08/20 07:24 Temperature -Last 24 Hours Temperature 98.6 F Temperature 98.6 F - Labs CBC & Chem 7: 02/06/20 01:34 02/08/20 08:02 Labs: Abnormal lab results 02/07/20 02/07/20 02/08/20 Range/Units 17:23 21:59 08:00 D-Dimer (0-234) ng/mlDDU Potassium (3.6-5.0) mmol/L Glucose (65-100) mg/dL POC Glucose 180 H 123 H 178 H (70-105) mg/dL Ferritin (10.0-200.0) ng/mL Lactate Dehydrogenase (91-180) units/L 02/08/20 02/08/20 02/08/20 Range/Units 08:02 11:15 11:15 D-Dimer 315.95 H (0-234) ng/mlDDU Potassium 3.2 L (3.6-5.0) mmol/L Glucose 146 H (65-100) mg/dL POC Glucose (70-105) mg/dL Ferritin 670.8 H (10.0-200.0) ng/mL Lactate Dehydrogenase (91-180) units/L 02/08/20 02/08/20 Range/Units 12:03 13:10 D-Dimer (0-234) ng/mlDDU Potassium (3.6-5.0) mmol/L Glucose (65-100) mg/dL POC Glucose 132 H (70-105) mg/dL Ferritin (10.0-200.0) ng/mL Lactate Dehydrogenase 394 H (91-180) units/L
--- NOTE | 2020-02-08 14:48 | Progress Note ---
Assessment and Plan --Bilateral COVID 19 pneumonia: Markers elevated ferritin 674, D-dimer 537. Patient also hypoxic Started on dexamethasone 6 mg p.o. for total 10 days Started on remdesivir IV total 5 days Prone positioning as possible SARS CoV-2 IgG came positive, no need for plasma therapy CXR: Patchy bilateral peripheral pulmonary infiltrates --Acute hypoxemic respiratory failure: O2 sat dropped to 88% on admission Continue supplemental O2 to keep O2 sat greater than 94% Scheduled breathing treatment and continue dexamethasone p.o. --hypokalemia, repleted as needed, monitor --Elevated LFTs: Likely from COVID, continue to monitor --Morbid obesity: BMI 58, dietary counseling for weight reduction when clinically stable --DVT prophylaxis, Lovenox Brief History; 54 years old female with history of morbid obesity, diabetes mellitus, admitted on 02/06/2020 due to a week history of nasal congestion, sinus congestion, dry cough, headaches. On arrival, temperature 98.7, HR 96, O2 sat 98%, RR 18, BP 180/78. During ambulation O2 sat dropped to 89%. Ferritin 674. Procalcitonin negative. D-dimer 537. Chest x-ray shows bilateral interstitial infiltrates. she is tested positive for COVID, ID consulted. 02/06: Patient is positive for COVID-19, continue dexamethasone, start on remdesivir as patient presented with high inflammatory markers hypoxia and morbid obesity. Continue to follow inflammatory markers. 02/07: continue dexamethasone, remdesivir. follow inflammatory markers. Subjective Date of service: 02/08/20 Interval history: Patient seen and examined. Medical records and medication list reviewed. No acute event overnight noted by the RN. Patient denies any chest pain , difficulty breathing on exertion only. Patient is tolerating diet. Discussed plan of care at bedside with patient. Objective - Exam Narrative Exam: GENERAL: well-developed morbidly obese -[place] female lying on bed appeared to be in no discomfort. HEENT: Normocephalic. Atraumatic. No conjunctival congestion or icterus. Patient has moist mucous membranes. NECK: Supple. Trachea midline. CHEST/LUNGS: breathing nonlabored. Positive bilateral rhonchi. HEART/CARDIOVASCULAR: Regular in rate and rhythm. S1 and S2 positive. ABDOMEN: Abdomen is soft, nontender. Patient has normal bowel sounds. SKIN: There is no rash. Warm and dry. NEURO: No focal motor deficit. Follows command. MUSCULOSKELETAL: No joint effusion or tenderness. EXTRIMITY: No edema, no cyanosis or clubbing. PSYCH: Cooperative. - Constitutional Vitals: Vital Signs - 12hr 02/08/20 02/08/20 02/08/20 05:46 07:24 13:20 Temperature 98.6 F Pulse Rate 94 H Pulse Rate [ 118 H 86 Bilateral Throughout] Respiratory 20 Rate Respiratory 20 18 Rate [Bilateral Throughout] Blood Pressure 174/87 O2 Sat by Pulse 95 95 Oximetry - Labs CBC & Chem 7: 02/09/20 05:25 02/10/20 05:49 Labs: Abnormal lab results 02/07/20 02/07/20 02/08/20 Range/Units 17:23 21:59 08:00 D-Dimer (0-234) ng/mlDDU Potassium (3.6-5.0) mmol/L Glucose (65-100) mg/dL POC Glucose 180 H 123 H 178 H (70-105) mg/dL Ferritin (10.0-200.0) ng/mL Lactate Dehydrogenase (91-180) units/L 02/08/20 02/08/20 02/08/20 Range/Units 08:02 11:15 11:15 D-Dimer 315.95 H (0-234) ng/mlDDU Potassium 3.2 L (3.6-5.0) mmol/L Glucose 146 H (65-100) mg/dL POC Glucose (70-105) mg/dL Ferritin 670.8 H (10.0-200.0) ng/mL Lactate Dehydrogenase (91-180) units/L 02/08/20 02/08/20 Range/Units 12:03 13:10 D-Dimer (0-234) ng/mlDDU Potassium (3.6-5.0) mmol/L Glucose (65-100) mg/dL POC Glucose 132 H (70-105) mg/dL Ferritin (10.0-200.0) ng/mL Lactate Dehydrogenase 394 H (91-180) units/L
[2020-02-08] MEDS: SODIUM CHLORIDE 0.9% 50 ML IVPB IV SCH (21:58)
[2020-02-08] MEDS: REMDESIVIR 100 MG in SODIUM CHLORIDE 0.9% 250ML 250 ML IV SCH (21:58)
[2020-02-08] MEDS: ENOXAPARIN 40 MG/0.4 ML INJ SUB-Q SCH (22:00)
[2020-02-08] MEDS: carvediloL 12.5 MG TAB PO SCH (22:01)
[2020-02-09] MEDS ORDERED: cloNIDine 0.1 MG TAB PO ONE (05:40)
[2020-02-09 06:42] LABS: Hematocrit 39.5 % (30.3-42.9); Mean Corpuscular HGB Conc 33 % (30-34); Mean Corpuscular Volume 80 fl (79-97); Platelet Count 282 K/mm3 (140-440); Red Blood Count 4.92 M/mm3 (3.65-5.03); Red Cell Distribution Width 14.3 % (13.2-15.2)
[2020-02-09 06:43] LABS: Eosinophils % (Auto) 0.1 % (0.0-4.3); Lymphocytes # (Auto) 1.1 K/mm3 (1.2-5.4); Lymphocytes % (Auto) 10.8 % (13.4-35.0); Monocytes # (Auto) 0.9 K/mm3 (0.0-0.8); Monocytes % (Auto) 9.2 % (0.0-7.3)
[2020-02-09 06:51] LABS: Alanine Aminotransferase 146 units/L (7-56); Albumin 3.3 g/dL (3.9-5); Blood Urea Nitrogen 13 mg/dL (7-17); Calcium 8.5 mg/dL (8.4-10.2); Hemolysis Index 16
[2020-02-09 06:54] LABS: BUN/Creatinine Ratio 22
[2020-02-09] MEDS: IPRATROPIUM/ALBUTEROL SULFATE 3 ML AMPUL.NEB IH SCH ×3 (07:22→19:53)
[2020-02-09] MEDS: INSULIN LISPRO 100 UNIT/ML VIAL 3 mL SUB-Q SCH ×4 (07:30→22:44)
[2020-02-09] MEDS: LISINOPRIL 20 MG TAB PO SCH (09:51)
[2020-02-09] MEDS: DEXAMETHASONE 2 MG TAB PO SCH (09:51)
[2020-02-09] MEDS: amLODIPine 10 MG TAB PO SCH (09:52)
[2020-02-09] MEDS: carvediloL 12.5 MG TAB PO SCH ×2 (09:52→22:43)
--- NOTE | 2020-02-09 15:00 | Progress Note ---
Assessment and Plan Cultures: SARS-CoV-2 PCR: Positive; IgG: Positive Assessment: 54 years old female with history of morbid obesity, diabetes mellitus, admitted on 02/06/2020 due to a week history of nasal congestion, sinus congestion, cough, headaches: #Bilateral pneumonia: Secondary to COVID-19 #Acute hypoxemic respiratory failure: improving. #Elevated LFTs: Likely from COVID #Morbid obesity: BMI 58, associated with poor outcomes Recommendations: -Continue dexamethasone 6 mg IV/PO qday for 10 days -Continue remdesivir while inpatient, D3 today -Given improvement in hypoxia, patient does not need to complete the full 5 day course of Remdesivir -Get ambulatory sats prior to discharge Gelacio Deng MD, FACP [facility] ([facility] O: [phone] F: [phone] Subjective Date of service: 02/09/20 Interval history: Patient afebrile. On room air. Objective - Exam Narrative Exam: Physical Exam (reviewed in chart due to PPE conservation and minimize risk of transmission) Constitutional: limited due to PPE conservation strategy Head, Ears, Nose: limited due to PPE conservation strategy Eyes: limited due to PPE conservation strategy Neck: limited due to PPE conservation strategy Oral: limited due to PPE conservation strategy Cardiovascular: limited due to PPE conservation strategy Respiratory: limited due to PPE conservation strategy GI: limited due to PPE conservation strategy Musculoskeletal: limited due to PPE conservation strategy Skin: limited due to PPE conservation strategy Hem/Lymphatic: limited due to PPE conservation strategy Psych: limited due to PPE conservation strategy Neurological: limited due to PPE conservation strategy - Constitutional Vitals: Vital Signs Temp Pulse Resp BP Pulse Ox 98.3 F 89 18 145/83 94 02/09/20 12:27 02/09/20 13:12 02/09/20 13:12 02/09/20 12:27 02/09/20 12:27 Temperature -Last 24 Hours Temperature 98.3 F Temperature 98.3 F Temperature 98.8 F - Labs CBC & Chem 7: 02/09/20 05:25 02/09/20 05:25 Labs: Abnormal lab results 02/08/20 02/08/20 02/09/20 Range/Units 18:18 21:33 05:25 MCH 26 L (28-32) pg Lymph % (Auto) 10.8 L (13.4-35.0) % Terry % (Auto) 9.2 H (0.0-7.3) % Lymph # (Auto) 1.1 L (1.2-5.4) K/mm3 Terry # (Auto) 0.9 H (0.0-0.8) K/mm3 Seg Neutrophils % 79.9 H (40.0-70.0) % Seg Neutrophils # 8.1 H (1.8-7.7) K/mm3 Potassium (3.6-5.0) mmol/L Glucose (65-100) mg/dL POC Glucose 166 H 150 H (70-105) mg/dL AST (5-40) units/L ALT (7-56) units/L Albumin (3.9-5) g/dL 02/09/20 02/09/20 02/09/20 Range/Units 05:25 08:34 12:45 MCH (28-32) pg Lymph % (Auto) (13.4-35.0) % Terry % (Auto) (0.0-7.3) % Lymph # (Auto) (1.2-5.4) K/mm3 Terry # (Auto) (0.0-0.8) K/mm3 Seg Neutrophils % (40.0-70.0) % Seg Neutrophils # (1.8-7.7) K/mm3 Potassium 3.0 L (3.6-5.0) mmol/L Glucose 149 H (65-100) mg/dL POC Glucose 148 H 151 H (70-105) mg/dL AST 50 H (5-40) units/L ALT 146 H (7-56) units/L Albumin 3.3 L (3.9-5) g/dL
--- NOTE | 2020-02-09 18:00 | Progress Note ---
Assessment and Plan --Bilateral COVID 19 pneumonia: Markers elevated ferritin 674, D-dimer 537. Patient also hypoxic Started on dexamethasone 6 mg p.o. for total 10 days Started on remdesivir IV total 5 days Prone positioning as possible SARS CoV-2 IgG came positive, no need for plasma therapy CXR: Patchy bilateral peripheral pulmonary infiltrates --Acute hypoxemic respiratory failure: O2 sat dropped to 88% on admission Continue supplemental O2 to keep O2 sat greater than 94% Scheduled breathing treatment and continue dexamethasone p.o. --hypokalemia, repleted as needed, monitor --Elevated LFTs: Likely from COVID, continue to monitor --Morbid obesity: BMI 58, dietary counseling for weight reduction when clinically stable --HTN, uncontrolled, resumed home meds. cont to adjust BP meds, as needed hydralazine --DM type 2, consisted carb diet, SSI --DVT prophylaxis, Lovenox Brief History; 54 years old female with history of morbid obesity, diabetes mellitus, admitted on 02/06/2020 due to a week history of nasal congestion, sinus congestion, dry cough, headaches. On arrival, temperature 98.7, HR 96, O2 sat 98%, RR 18, BP 180/78. During ambulation O2 sat dropped to 89%. Ferritin 674. Procalcitonin negative. D-dimer 537. Chest x-ray shows bilateral interstitial infiltrates. she is tested positive for COVID, ID consulted. 02/06: Patient is positive for COVID-19, continue dexamethasone, start on remdesivir as patient presented with high inflammatory markers hypoxia and morbid obesity. Continue to follow inflammatory markers. 02/07: continue dexamethasone, remdesivir. follow inflammatory markers. 02/08: BP noted elevtaed, cont to adjust meds. follow inflammatory markers. day 3 remdesivir today. if clinically stable possible d/c tomorrow Subjective Date of service: 02/09/20 Interval history: Patient seen and examined. Medical records and medication list reviewed. No acute event overnight noted by the RN. Patient denies any chest pain , difficulty breathing on exertion only. Patient is tolerating diet. Discussed plan of care at bedside with patient. Objective - Exam Narrative Exam: GENERAL: well-developed morbidly obese -[place] female lying on bed appeared to be in no discomfort. HEENT: Normocephalic. Atraumatic. No conjunctival congestion or icterus. Patient has moist mucous membranes. NECK: Supple. Trachea midline. CHEST/LUNGS: breathing nonlabored. Positive bilateral rhonchi. HEART/CARDIOVASCULAR: Regular in rate and rhythm. S1 and S2 positive. ABDOMEN: Abdomen is soft, nontender. Patient has normal bowel sounds. SKIN: There is no rash. Warm and dry. NEURO: No focal motor deficit. Follows command. MUSCULOSKELETAL: No joint effusion or tenderness. EXTRIMITY: No edema, no cyanosis or clubbing. PSYCH: Cooperative. - Constitutional Vitals: Vital Signs - 12hr 02/09/20 02/09/20 02/09/20 07:22 12:27 13:12 Temperature 98.3 F Pulse Rate 94 H Pulse Rate [ 89 89 Bilateral Throughout] Respiratory 24 Rate Respiratory 18 18 Rate [Bilateral Throughout] Blood Pressure 145/83 O2 Sat by Pulse 95 94 Oximetry - Labs CBC & Chem 7: 02/09/20 05:25 02/10/20 05:49 Labs: Abnormal lab results 02/08/20 02/08/20 02/09/20 Range/Units 18:18 21:33 05:25 MCH 26 L (28-32) pg Lymph % (Auto) 10.8 L (13.4-35.0) % Gage % (Auto) 9.2 H (0.0-7.3) % Lymph # (Auto) 1.1 L (1.2-5.4) K/mm3 Gage # (Auto) 0.9 H (0.0-0.8) K/mm3 Seg Neutrophils % 79.9 H (40.0-70.0) % Seg Neutrophils # 8.1 H (1.8-7.7) K/mm3 Potassium (3.6-5.0) mmol/L Glucose (65-100) mg/dL POC Glucose 166 H 150 H (70-105) mg/dL AST (5-40) units/L ALT (7-56) units/L Albumin (3.9-5) g/dL 02/09/20 02/09/20 02/09/20 Range/Units 05:25 08:34 12:45 MCH (28-32) pg Lymph % (Auto) (13.4-35.0) % Gage % (Auto) (0.0-7.3) % Lymph # (Auto) (1.2-5.4) K/mm3 Gage # (Auto) (0.0-0.8) K/mm3 Seg Neutrophils % (40.0-70.0) % Seg Neutrophils # (1.8-7.7) K/mm3 Potassium 3.0 L (3.6-5.0) mmol/L Glucose 149 H (65-100) mg/dL POC Glucose 148 H 151 H (70-105) mg/dL AST 50 H (5-40) units/L ALT 146 H (7-56) units/L Albumin 3.3 L (3.9-5) g/dL 02/09/20 Range/Units 18:00 MCH (28-32) pg Lymph % (Auto) (13.4-35.0) % Gage % (Auto) (0.0-7.3) % Lymph # (Auto) (1.2-5.4) K/mm3 Gage # (Auto) (0.0-0.8) K/mm3 Seg Neutrophils % (40.0-70.0) % Seg Neutrophils # (1.8-7.7) K/mm3 Potassium (3.6-5.0) mmol/L Glucose (65-100) mg/dL POC Glucose 198 H (70-105) mg/dL AST (5-40) units/L ALT (7-56) units/L Albumin (3.9-5) g/dL
[2020-02-09] MEDS: POTASSIUM CHLORIDE ER 10 MEQ TAB PO SCH (18:30)
[2020-02-09] MEDS: SODIUM CHLORIDE 0.9% 50 ML IVPB IV SCH (22:43)
[2020-02-09] MEDS: ENOXAPARIN 40 MG/0.4 ML INJ SUB-Q SCH (22:43)
[2020-02-09] MEDS: REMDESIVIR 100 MG in SODIUM CHLORIDE 0.9% 250ML 250 ML IV SCH (22:43)
[2020-02-10 06:33] LABS: Blood Urea Nitrogen 17 mg/dL (7-17); Calcium 8.9 mg/dL (8.4-10.2); Hemolysis Index 4
[2020-02-10 06:37] LABS: BUN/Creatinine Ratio 24
[2020-02-10] MEDS: IPRATROPIUM/ALBUTEROL SULFATE 3 ML AMPUL.NEB IH SCH ×2 (08:50→14:09)
[2020-02-10] MEDS: INSULIN LISPRO 100 UNIT/ML VIAL 3 mL SUB-Q SCH (10:58)
[2020-02-10] MEDS: carvediloL 12.5 MG TAB PO SCH (11:37)
[2020-02-10] MEDS: DEXAMETHASONE 2 MG TAB PO SCH (11:37)
[2020-02-10] MEDS: POTASSIUM CHLORIDE ER 10 MEQ TAB PO SCH (11:38)
[2020-02-10] MEDS: amLODIPine 10 MG TAB PO SCH (11:38)
[2020-02-10] MEDS: LISINOPRIL 20 MG TAB PO SCH (11:38)
--- NOTE | 2020-02-10 12:18 | Discharge Summary ---
Providers - Providers Date of Admission: 02/06/20 02:17 Date of discharge: 02/17/20 Attending physician: JAN SERRATO 02/06/20 02:19 Consult to Physician [CONS] Routine Comment: Consulting Provider: ARELY HOFFMANN Physician Instructions: Reason For Exam: PNEUMONIA, HYPOXIA 02/06/20 02:25 Consult to Dietitian/Nutrition [CONS] Routine Physician Instructions: Reason For Exam: Reason for Consult: Diet education Primary care physician: DISTRICT RANGER Hospitalization Condition: Stable Hospital course: 54 years old female with history of morbid obesity, diabetes mellitus, admitted on 02/06/2020 due to a week history of nasal congestion, sinus congestion, dry cough, headaches. On arrival, temperature 98.7, HR 96, O2 sat 98%, RR 18, BP 180/78. During ambulation O2 sat dropped to 89%. Ferritin 674. Procalcitonin negative. D-dimer 537. Chest x-ray shows bilateral interstitial infiltrates. she is tested positive for COVID, ID consulted. 02/06: Patient is positive for COVID-19, continue dexamethasone, start on remdesivir as patient presented with high inflammatory markers hypoxia and morbid obesity. Continue to follow inflammatory markers. 02/07: continue dexamethasone, remdesivir. follow inflammatory markers. 02/08: BP noted elevtaed, cont to adjust meds. follow inflammatory markers. day 3 remdesivir today. if clinically stable possible d/c tomorrow 02/09: d/c home today, inflammatory markers stable, patient on room air Discharge diagnosis: --Bilateral COVID 19 pneumonia: Markers elevated ferritin 674, D-dimer 537. Patient also hypoxic Started on dexamethasone 6 mg p.o. for total 10 days Started on remdesivir IV total 5 days Prone positioning as possible SARS CoV-2 IgG came positive, no need for plasma therapy CXR: Patchy bilateral peripheral pulmonary infiltrates --Acute hypoxemic respiratory failure: O2 sat dropped to 88% on admission Continue supplemental O2 to keep O2 sat greater than 94% Scheduled breathing treatment and continue dexamethasone p.o. --hypokalemia, repleted as needed, monitor --Elevated LFTs: Likely from COVID, continue to monitor --Morbid obesity: BMI 58, dietary counseling for weight reduction when clinically stable --HTN, uncontrolled, resumed home meds. cont to adjust BP meds, as needed hydralazine --DM type 2, consisted carb diet, SSI --DVT prophylaxis, Lovenox Disposition: DC-01 TO HOME OR SELFCARE Time spent for discharge: 34 minutes Core Measure Documentation - Palliative Care Palliative Care/ Comfort Measures: Not Applicable - Core Measures Any of the following diagnoses?: none Exam - Physical Exam Narrative exam: GENERAL: well-developed morbidly obese -[place] Islander female lying on bed appeared to be in no discomfort. HEENT: Normocephalic. Atraumatic. No conjunctival congestion or icterus. Patient has moist mucous membranes. NECK: Supple. Trachea midline. CHEST/LUNGS: breathing nonlabored. Positive bilateral rhonchi. HEART/CARDIOVASCULAR: Regular in rate and rhythm. S1 and S2 positive. ABDOMEN: Abdomen is soft, nontender. Patient has normal bowel sounds. SKIN: There is no rash. Warm and dry. NEURO: No focal motor deficit. Follows command. MUSCULOSKELETAL: No joint effusion or tenderness. EXTRIMITY: No edema, no cyanosis or clubbing. PSYCH: Cooperative. - Constitutional Vitals: Temp Pulse Resp BP Pulse Ox 98.3 F 91 H 20 176/87 93 02/10/20 04:39 02/10/20 11:38 02/10/20 04:39 02/10/20 11:38 02/10/20 04:39 Plan Activity: advance as tolerated Weight Bearing Status: Weight Bear as Tolerated Diet: low fat, low salt, diabetic Additional Instructions: Please quarantine yourself for 10 days from the onset of your symptoms Follow up with: [facility] [Provider Group] - 7-10 days Prescriptions: amLODIPine 10 mg PO QDAY #30 tablet hydrALAZINE [Apresoline TAB] 50 mg PO Q8HR #90 tablet Dexamethasone [Decadron] 6 mg PO DAILY #4 tablet
--- NOTE | 2020-02-10 13:23 | Event Note ---
Date: 02/10/20 Afebrile, remains on room air. Agree with discharge plan. ID will sign off. Please call with questions.
[2020-02-10] MEDS ORDERED: hydrALAZINE 25 MG TAB PO SCH (14:00)
[2020-02-10 15:06] VITALS: BP 143/68
[2020-02-10] MEDS ORDERED: REMDESIVIR 100 MG in SODIUM CHLORIDE 0.9% 250ML 250 ML IV ONE (16:00)
[2020-02-10] MEDS ORDERED: SODIUM CHLORIDE 0.9% 50 ML IVPB IV SCH (16:00)
== END 2020-02-10 16:56 | disposition home or self-care (01) | DRG 177 ==
LOC: ED 21:56 → 3A 02-06 02:17
PROVIDERS: ADMIT Internal Medicine Geriatric Medicine; ATTEND Internal Medicine
PROC: XW033E5 Introduction of Remdesivir Anti-infective into Peripheral Vein, Percutaneous Approach, New Technology Group 5 (ICD-10-PCS; principal; 2020-02-07)
DX: U07.1 COVID-19 (principal); J12.89 Other viral pneumonia; J96.01 Acute respiratory failure with hypoxia; Z68.43 Body mass index [BMI] 50.0-59.9, adult; J06.9 Acute upper respiratory infection, unspecified; E66.01 Morbid (severe) obesity due to excess calories; E11.9 Type 2 diabetes mellitus without complications; Z79.84 Long term (current) use of oral hypoglycemic drugs; I10 Essential (primary) hypertension; J20.8 Acute bronchitis due to other specified organisms; R79.89 Other specified abnormal findings of blood chemistry; E87.6 Hypokalemia
CPT/HCPCS: 36415; 71046; 80048; 80053; 82728; 82947; 82962; 83615; 83735; 84145; 85025; 85379; 86140; 94640; 94644; 96365; 96366; 96367; 96375; 96376; G0378; J0360; J0456; J0696; J1100; J1650; J2270; J2405; J3480; J7030; J7050; J8540; U0003

== ENCOUNTER 2021-07-05 12:52 | Emergency (ER) | payer SELFPAY ==
[2021-07-05 13:01] VITALS: BP 172/91
--- NOTE | 2021-07-05 13:53 | XRay Report ---
CHEST 2 VIEWS INDICATION / CLINICAL INFORMATION: Chest Pain. COMPARISON: 02/06/20. FINDINGS: SUPPORT DEVICES: None. HEART / MEDIASTINUM: The heart size and pulmonary vasculature are normal. The aorta is normal in homa debbie. LUNGS / PLEURA: No significant pulmonary or pleural abnormality. No pneumothorax. ADDITIONAL FINDINGS: No significant additional findings. IMPRESSION: No acute findings. Signer Name: Nadeem Ryder MD Signed: 07/05/2021 1:49 PM Workstation Name: [email or web address]
--- NOTE | 2021-07-05 14:24 | Emergency Department Report ---
ED Chest Pain HPI - General Chief Complaint: Chest Pain Stated Complaint: WEIRD FEELING (CHEST) NO PAIN Time Seen by Provider: 07/05/21 14:24 Source: patient Mode of arrival: Ambulatory Limitations: No Limitations - History of Present Illness Initial Comments: Patient is a pleasant 56-year-old female that comes to the emergency room with chest pressure. On exam she is pointing to her right chest. She states that she went to her PCP this week and they again put her on a diet medicine but they did an EKG in size ST depression. She has been anxious since then. She comes to the ER for evaluation. On exam she is having no pain. Her EKG in triage was normal. She denies shortness of breath. Denies fever or chills. Patient denies any cardiac history. -: Gradual, days(s) Onset: during rest, during exertion Pain Location: substernal, right chest Pain Radiation: none Severity: mild Severity scale (0 -10): 0 Quality: tightness Consistency: intermittent Improves With: nothing Worsens With: nothing Aspirin use within the Past 7 Days: (0) No - Related Data On Oral Contraceptives: No Home Medications Medication Instructions Recorded Confirmed Last Taken Lisinopril 20 mg PO DAILY 11/25/16 02/06/20 Unknown metFORMIN 500 mg PO BID 11/25/16 02/06/20 Unknown Lisinopril/Hydrochlorothiazide 1 each PO DAILY 02/06/20 02/06/20 Unknown [Zestoretic 10-12.5 mg Tablet] cloNIDine [Catapres] 0.2 mg PO BID 02/06/20 02/06/20 Unknown Previous Rx's Medication Instructions Recorded Last Taken Type Dexamethasone [Decadron] 6 mg PO DAILY #4 tablet 02/10/20 Unknown Rx amLODIPine 10 mg PO QDAY #30 tablet 02/10/20 Unknown Rx hydrALAZINE [Apresoline TAB] 50 mg PO Q8HR #90 tablet 02/10/20 Unknown Rx Allergies Allergy/AdvReac Type Severity Reaction Status Date / Time No Known Allergies Allergy Unverified 06/07/14 09:22 Heart Score - HEART Score History: Slightly suspicious EKG: Normal Age: 45-65 Risk factors: 1-2 risk factors Troponin: < normal limit HEART Score: 2 - EKG Read Time Time EKG Completed: 13:02 EKG Read Time: 13:02 ED Review of Systems ROS: Stated complaint: WEIRD FEELING (CHEST) NO PAIN Other details as noted in HPI Comment: All other systems reviewed and negative ED Past Medical Hx - Past Medical History Previous Medical History?: Yes Hx Hypertension: Yes Additional medical history: Morbid Obesity; ANXIETY - Surgical History Past Surgical History?: Yes Additional Surgical History: C-sections X 3 - Family History Family history: no significant - Social History Smoking Status: Never Smoker Substance Use Type: None - Medications Home Medications: Home Medications Medication Instructions Recorded Confirmed Last Taken Type Lisinopril 20 mg PO DAILY 11/25/16 02/06/20 Unknown History metFORMIN 500 mg PO BID 11/25/16 02/06/20 Unknown History Lisinopril/Hydrochlorothiazide 1 each PO DAILY 02/06/20 02/06/20 Unknown History [Zestoretic 10-12.5 mg Tablet] cloNIDine [Catapres] 0.2 mg PO BID 02/06/20 02/06/20 Unknown History Dexamethasone [Decadron] 6 mg PO DAILY #4 tablet 02/10/20 Unknown Rx amLODIPine 10 mg PO QDAY #30 tablet 02/10/20 Unknown Rx hydrALAZINE [Apresoline TAB] 50 mg PO Q8HR #90 tablet 02/10/20 Unknown Rx ED Physical Exam - General Limitations: No Limitations General appearance: alert, in no apparent distress - Head Head exam: Present: atraumatic, normocephalic - Eye Eye exam: Present: normal appearance - ENT ENT exam: Present: mucous membranes moist - Neck Neck exam: Present: normal inspection - Respiratory Respiratory exam: Present: normal lung sounds bilaterally. Absent: respiratory distress - Cardiovascular Cardiovascular Exam: Present: regular rate, normal rhythm. Absent: systolic murmur, diastolic murmur, rubs, gallop - GI/Abdominal GI/Abdominal exam: Present: soft, normal bowel sounds - Extremities Exam Extremities exam: Present: normal inspection - Back Exam Back exam: Present: normal inspection - Neurological Exam Neurological exam: Present: alert, oriented X3 - Psychiatric Psychiatric exam: Present: normal affect, normal mood - Skin Skin exam: Present: warm, dry, intact, normal color. Absent: rash ED Course Vital Signs 07/05/21 12:57 Temperature 98.6 F Pulse Rate 102 H Respiratory 18 Rate Blood Pressure 172/91 O2 Sat by Pulse 99 Oximetry ANIKET score - Aniket Score Age > 65: (0) No Aspirin use within the Past 7 Days: (0) No 3 or more CAD Risk Factors: (0) No 2 or more Angina events in past 24 hrs: (0) No Known CAD with more than 50% Stenosis: (0) No Elevated Cardiac Markers: (0) No ST Deviation Greater than 0.5mm: (0) No ANIKET Score: 0 ED Medical Decision Making - Lab Data Result diagrams: 07/05/21 14:25 07/05/21 14:25 - EKG Data EKG shows normal: sinus rhythm Rate: normal - EKG Data When compared to previous EKG there are: no significant change - Radiology Data Radiology results: report reviewed, image reviewed No acute process - Medical Decision Making Vital Signs 07/05/21 12:57 Temperature 98.6 F Pulse Rate 102 H Respiratory 18 Rate Blood Pressure 172/91 O2 Sat by Pulse 99 Oximetry Labs 07/05/21 07/05/21 14:25 14:25 WBC 6.4 RBC 5.05 H Hgb 13.0 Hct 40.8 MCV 81 MCH 26 L MCHC 32 RDW 13.9 Plt Count 281 Lymph % (Auto) 40.9 H Lea % (Auto) 9.2 H Eos % (Auto) 4.0 Baso % (Auto) 0.9 Lymph # (Auto) 2.6 Lea # (Auto) 0.6 Eos # (Auto) 0.3 Baso # (Auto) 0.1 Seg Neutrophils % 45.0 Seg Neutrophils # 2.9 Sodium 143 Potassium 3.2 L Chloride 103.1 Carbon Dioxide 26 Anion Gap 17 BUN 16 Creatinine 0.9 Estimated GFR > 60 BUN/Creatinine Ratio 18 Glucose 104 H Calcium 9.6 Total Bilirubin 0.30 AST 47 H ALT 63 H Alkaline Phosphatase 68 Troponin T < 0.010 Total Protein 7.4 Albumin 4.1 Albumin/Globulin Ratio 1.2 EKG NOTED XRAY NOTED LABS NOTED PT HAVING NO PAIN Patient being discharged home with discharge plan of care including diet, activ ity, medications and follow-up. She verbalizes understanding. Patient is ambulatory, nonill nontoxic on discharge. She is taking p.o. She has no complaints on discharge - Differential Diagnosis Rule out ACS Critical care attestation.: If time is entered above; I have spent that time in minutes in the direct care of this critically ill patient, excluding procedure time. ED Disposition Clinical Impression: Anxiety Disposition: 01 HOME / SELF CARE / HOMELESS Is pt being admited?: No Does the pt Need Aspirin: No Condition: Stable Instructions: Managing Anxiety, Adult Additional Instructions: All labs and x-ray normal today. Follow-up with PCP. Referrals: PLACIDO RAHMAN MD [Staff Physician] - 3-5 Days Time of Disposition: 15:14
[2021-07-05 14:45] LABS: Basophils # (Auto) 0.1 K/mm3 (0.0-0.1); Basophils % (Auto) 0.9 % (0.0-1.8); Eosinophils # (Auto) 0.3 K/mm3 (0.0-0.4); Hematocrit 40.8 % (30.3-42.9); Lymphocytes # (Auto) 2.6 K/mm3 (1.2-5.4); Lymphocytes % (Auto) 40.9 % (13.4-35.0); Mean Corpuscular HGB Conc 32 % (30-34); Mean Corpuscular Volume 81 fl (79-97); Monocytes # (Auto) 0.6 K/mm3 (0.0-0.8); Monocytes % (Auto) 9.2 % (0.0-7.3); Platelet Count 281 K/mm3 (140-440); Red Blood Count 5.05 M/mm3 (3.65-5.03); Red Cell Distribution Width 13.9 % (13.2-15.2)
[2021-07-05 15:06] LABS: Alanine Aminotransferase 63 units/L (7-56); Albumin 4.1 g/dL (3.9-5); BUN/Creatinine Ratio 18; Blood Urea Nitrogen 16 mg/dL (7-17); Calcium 9.6 mg/dL (8.4-10.2); Hemolysis Index 8
--- NOTE | 2021-07-06 20:24 | Electrocardiograph Report ---
[facility] Test Date: 2021-07-05 Test Time: 13:04:36 Pat Name: NAYAN BARRON Department: Room: Gender: F Manager Clinical: ERIKA : 1965 Requested By: JUANJO SANDY Order Number: [id number] Reading MD: Tavares Ovalle Measurements Intervals [place] Rate: 93 P: 50 MS: 165 QRS: 3 QRSD: 105 T: 49 QT: 368 QTc: 457 Interpretive Statements Sinus rhythm No previous ECG available for comparison Electronically Signed On 07-06-2021 20:23:25 EDT by Tavares Ovalle
== END 2021-07-05 15:40 | disposition home or self-care (01) ==
LOC: ED 12:52
DX: F41.9 Anxiety disorder, unspecified (principal); I10 Essential (primary) hypertension
CPT/HCPCS: 36415; 71046; 80053; 84484; 85025; 93005; 99283

== ENCOUNTER 2021-11-02 15:41 | Emergency (ER) | payer SELFPAY ==
[2021-11-02 15:57] VITALS: BP 205/97
--- NOTE | 2021-11-02 17:02 | XRay Report ---
RIGHT HUMERUS 3 VIEWS RIGHT ELBOW 3 VIEWS INDICATION: injury. COMPARISON: No relevant prior imaging study available. FINDINGS: Right humerus: There is a comminuted oblique butterfly type fracture of the distal humeral metaphysis with angulation/displacement. No additional fractures are seen. Mild degenerative changes are noted at the right shoulder. Right elbow: No additional acute fractures are seen. No joint effusion or significant soft tissue swe lling. IMPRESSION: 1. Distal humerus fracture as above. Signer Name: Matheus Gomez MD Signed: 11/02/2021 4:57 PM Workstation Name: [employer]
--- NOTE | 2021-11-03 01:01 | Emergency Department Report ---
Upper Extremity - HPI Chief Complaint: Extremity Injury, Upper Stated Complaint: FALL/RT ARM INJURY Time Seen by Provider: 11/02/21 23:59 Upper Extremity: Right Arm Occurred When: Today Mechanism: Fall Severity: severe Symptoms: Yes Pain with Movement, Yes Deformity, Yes Limited Range of Movement, Yes Numbness, Yes Swelling, No Weakness, No Bruising/Ecchymosis, No Laceration or Abrasion ED Review of Systems ROS: Stated complaint: FALL/RT ARM INJURY Other details as noted in HPI Comment: All other systems reviewed and negative Musculoskeletal: joint swelling, myalgia (right arm ) ED Past Medical Hx - Past Medical History Previous Medical History?: Yes Hx Hypertension: Yes Additional medical history: Morbid Obesity; ANXIETY - Surgical History Additional Surgical History: C-sections X 3 - Social History Smoking Status: Never Smoker - Medications Home Medications: Home Medications Medication Instructions Recorded Confirmed Last Taken Type Lisinopril 20 mg PO DAILY 11/25/16 02/06/20 Unknown History metFORMIN 500 mg PO BID 11/25/16 02/06/20 Unknown History Lisinopril/Hydrochlorothiazide 1 each PO DAILY 02/06/20 02/06/20 Unknown History [Zestoretic 10-12.5 mg Tablet] cloNIDine [Catapres] 0.2 mg PO BID 02/06/20 02/06/20 Unknown History Dexamethasone [Decadron] 6 mg PO DAILY #4 tablet 02/10/20 Unknown Rx amLODIPine 10 mg PO QDAY #30 tablet 02/10/20 Unknown Rx hydrALAZINE [Apresoline TAB] 50 mg PO Q8HR #90 tablet 02/10/20 Unknown Rx Docusate Sodium [Colace] 100 mg PO BID PRN 5 Days #10 11/03/21 Unknown Rx capsule NS oxyCODONE /ACETAMINOPHEN [Percocet 1 tab PO Q6HR PRN 5 Days #20 11/03/21 Unknown Rx 5/325] tablet NS Upper Extremity Exam - Exam General: Vital signs noted. No distress. Alert and acting appropriately. Head and Torso: No HEENT Abnormality, No Neck Tenderness, No Chest/Lungs Abnormality, No Abdominal Tenderness, No Back Tenderness Shoulder Exam: Yes Normal Range of Motion in Shoulder (due to pain in the distal aspect), No Shoulder Tenderness, No Clavicle Tenderness, No Shoulder Deformity, No AC Joint Tenderness Arm Exam: Yes Arm/Humerus Tenderness (right ), Yes Arm Deformity (right ) Elbow: Yes Normal Range of Motion in Elbow, No Elbow Tenderness, No Elbow Defor mity Forearm: No Forearm Tenderness, No Forearm Deformity, No Pain with Pronation, No Pain with Supination Wrist: Yes Normal ROM in Wrist, No Wrist Tenderness, No Wrist Deformity, No Snuffbox Tenderness, No Pain with Axial Thumb Compression Hand: Yes Normal ROM in Digit(s), No Hand Tenderness, No Hand Deformity, No Digit Tenderness, No Digit(s) Deformity, No Tendon Dysfunction CMS Exam: Yes Normal Distal Pulses, Yes Normal Capillary Refill, Yes Normal Distal Sensation, No Broken Skin ED Course Vital Signs 11/02/21 11/02/21 15:56 23:36 Temperature 98.5 F Pulse Rate 98 H Respiratory 17 18 Rate Blood Pressure 205/97 [Left] O2 Sat by Pulse 99 99 Oximetry - Consultations Consultation #1: 11/03/21 01:32 Dr Mckeon orthopedic consulted who suggested long posterior with a close follow up with him at the clinic -- ED Medical Decision Making - Medical Decision Making fall with right arm deformity and pain -- which raised concern for fx or dislocation at the elbow joint-- to rule out these will go ahead and order xray -- given pain medication XR right humeral noted with FINDINGS: Right humerus: There is a comminuted oblique butterfly type fracture of the distal humeral metaphysis with angulation/displacement. No additional fractures are seen. Mild degenerative changes are noted at the right shoulder. Right elbow: No additional acute fractures are seen. No joint effusion or significant soft tissue swelling. IMPRESSION: 1. Distal humerus fracture as above. 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 ED Disposition Clinical Impression: Humeral distal fracture Qualifiers: Encounter type: initial encounter Fracture type: closed Fracture morphology: other fracture Fracture alignment: displaced Laterality: right Qualified Code(s): S42.491A - Other displaced fracture of lower end of right humerus, initial encounter for closed fracture Disposition: 01 HOME / SELF CARE / HOMELESS Is pt being admited?: No Does the pt Need Aspirin: No Condition: Stable Instructions: Cast or Splint Care, Adult, [id number] Prescriptions: Docusate Sodium [Colace] 100 mg PO BID PRN 5 Days #10 capsule NS PRN Reason: Constipation oxyCODONE /ACETAMINOPHEN [Percocet 5/325] 1 tab PO Q6HR PRN 5 Days #20 tablet NS PRN Reason: Pain Referrals: SUNNY MEMBRENO II, MD [Staff Physician] - 3-5 Days ALIE FUNEZ MD [Referring] - 3-5 Days MEET LACEY III, MD [Referring] - 3-5 Days ZANA CLEARY MD [Staff Physician] - 3-5 Days ZANA ADKINS DO [Staff Physician] - 3-5 Days IZABELA BARNARD MD [Staff Physician] - 3-5 Days SABINO AVILA MD [Staff Physician] - 3-5 Days AIDEN SUÁREZ DPM [Staff Physician] - 3-5 Days MARITZA XIONG MD [Staff Physician] - 3-5 Days PATRICK AHUMADA MD [Staff Physician] - 3-5 Days TULIO PRINCE MD [Staff Physician] - 3-5 Days BUFFY MIN MD [Staff Physician] - 3-5 Days KEM HIGHTOWER MD [Staff Physician] - 3-5 Days CALIXTO ISSA MD [Staff Physician] - 3-5 Days JAZ CHAMORRO MD [Staff Physician] - 3-5 Days SYBIL ENGLISH MD [Staff Physician] - 3-5 Days CLINT HAMMER III, MD [Staff Physician] - 3-5 Days LI HADDAD MD [Staff Physician] - 3-5 Days JONNY CHANG MD [Staff Physician] - 3-5 Days LI RODRIGUEZ DO [Staff Physician] - 3-5 Days OLIVIA WARNER MD [Staff Physician] - 3-5 Days LI VICKERS MD [Staff Physician] - 3-5 Days DOUGLAS NOBLE MD [Staff Physician] - 3-5 Days DAVID MCKEON MD [Staff Physician] - 3-5 Days EDIE SAUCEDA MD [Staff Physician] - 3-5 Days EMELY HARRINGTON MD [Staff Physician] - 3-5 Days JASMYN HUA MD [Staff Physician] - 3-5 Days Forms: Accompanied Note, Work/School Release Form(ED) Time of Disposition: 06:08
[2021-11-03] MEDS ORDERED: MORPHINE 2 MG/1 ML INJ IM ONE (01:03)
== END 2021-11-03 03:00 | disposition home or self-care (01) ==
LOC: ED 15:41
DX: S42.401A Unspecified fracture of lower end of right humerus, initial encounter for closed fracture (principal); I10 Essential (primary) hypertension; X58.XXXA Exposure to other specified factors, initial encounter; Y93.89 Activity, other specified; Y92.89 Other specified places as the place of occurrence of the external cause; Y99.8 Other external cause status
CPT/HCPCS: 29105; 73060; 73070; 96372; 99283; J2270